=== PATIENT | male | born 1995 | race Caucasian/White ===

== ENCOUNTER 2016-12-30 14:19 | Emergency (ER) | payer OTHER ==
[2016-12-30 14:38] VITALS: TEMP 97.9
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
[2016-12-30] MEDS ORDERED: LET GEL TOPICAL 1 EA SYR TP ONE (15:10)
[2016-12-30 16:23] VITALS: BP 119/79; PULSE 95; RESP 18; O2SAT 98
== END 2016-12-30 16:22 | disposition home or self-care (01) ==
DX: S50.311A Abrasion of right elbow, initial encounter (principal); S40.811A Abrasion of right upper arm, initial encounter; S80.211A Abrasion, right knee, initial encounter; T14.8 Other injury of unspecified body region; V29.40XA Motorcycle driver injured in collision with unspecified motor vehicles in traffic accident, initial encounter; Y92.410 Unspecified street and highway as the place of occurrence of the external cause; Y99.8 Other external cause status; Y93.89 Activity, other specified